=== PATIENT | male | born 1940 | race Caucasian/White ===

== ENCOUNTER 2016-06-04 20:50 | Inpatient (IN) | payer MEDICARE, BC ==
[~2016-06-04] VITALS: Ht 175.3 cm; Wt 92.5 kg
[~2016-06-04 20:50] MED LIST: ALDACTONE25 MG PO; ALDACTONE50 MG PO; ARED PO; ASPIRIN 81 MG E81 MG PO; BAYER CHEWABLE81 MG PO; CORDARONE200 MG PO; COREG25 MG PO; DIOVAN HCT 160/1 TAB PO; GLIMEPIRIDE1 MG PO; GLIMEPIRIDE4 MG PO; HUMALOG 30100 UNITS/ SC; JANUVIA100 MG PO; JANUVIA25 MG PO; KLOR-CON 88 MEQ PO; KRILL OIL 1,001 EAC1 PO; LANTUS INSULIN10 ML SC; LASIX20 MG PO; LASIX40 MG PO; LIQUITEARS15 ML EACH EYE; LOVAZA1 G PO; OMNICEF300 MG PO; ONGLYZA5 MG PO; PACERONE200 MG PO; PLAVIX75 MG PO; PROVENTIL HFA6.7 GM INH; TENORMIN50 MG PO; TOUJEO SOL300 UNIT/1 SC; VENTOLIN HFA18 GM INH; ZOCOR20 MG PO
--- NOTE | 2016-06-04 20:50 | NUR ---
PT ARRIVED ON REHAB UNIT, ADMITTED TO ROOM 1119B, ASSISTED BY HOSPITAL STAFF. PT IS FOR FIVE YEARS, SON LIVES IN [place]. PT HAS SUPPORT INDIVIDUAL TO ASSIST WITH CARES. PT HAS SERVICE DOG, DOG IS STAYING ON TRAINERS. PT WOULD APPRECIATE IF DOG WAS ABLE TO VISIT. THE DOG HELPS PATIENT WITH HIS DIABETES AND DETECTS WHEN PT IS EITHER TO HIGH OR TO LOW. PT STATES HE DOES CHECK HIS FSBS BEFORE EACH MEAL AT HOME. PT EXPRESSES CONCERN AND IS MOTIVATED TO RETURN HOME, PT DIDN'T ANTICIPATE HAVING A STROKE. PT STATES HE IS INDEPENDENT AND WANTS TO DO THINGS FOR HIMSELF.
[2016-06-04 21:45] VITALS: BP 118/59; BMI 30.2
--- NOTE | 2016-06-05 03:03 | NUR ---
PT AWAKE IN BED LYING ON HIS SIDE, DENIES ANY NEEDS.
--- NOTE | 2016-06-05 03:52 | NUR ---
LATE ENTRY FROM ASSESSMENT, PT NOT ABLE TO TOUCH HIS LEFT HAND WITH HIS RIGHT, PT STATES HE DOESN'T KNOW WHERE HIS LEFT HAND IS, IT ISN'T WHERE HE THINKS IT SHOULD BE.
[2016-06-05 06:57] LABS: BASOPHILS 0.2 % (0.0-2.0); EOSINOPHILS 2.8 % (0-7); HEMATOCRIT 36.1 % (42.0-54.0); HEMOGLOBIN 12.1 g/dL (13.5-17.5); IMMATURE GRANULOCYTES 0.6 % (0-5); LYMPHOCYTES 14.3 % (15-50); MCH 30.6 pg (26.0-34.0); MCHC 33.5 g/dL (31.0-37.0); MCV 91.2 fL (80.0-100.0); MONOCYTES 11.6 % (2-11); NEUTROPHILS 70.5 % (40-80); PLATELET COUNT 176 10x3/uL (130-400); RBC 3.96 10x6/uL (4.20-6.10); RDW 13.2 % (11.5-14.5); WBC 11.2 10x3/uL (4.8-10.8)
[2016-06-05 07:22] LABS: ANION GAP 13.1 mmol/L (8-16); CALCIUM 8.1 mg/dL (8.5-10.1); CARBON DIOXIDE 27.9 mmol/L (21.0-32.0); CREATININE - SERUM 1.7 mg/dL (0.6-1.3)
--- NOTE | 2016-06-05 08:20 | NUR ---
SITTING ON SIDE OF BED EATING BREAKFAST. LUE WEAK AND PT C/O IT ACHES WHEN IT IS HANGING DOWN.
[2016-06-05 08:35] VITALS: BP 126/81
--- NOTE | 2016-06-05 12:12 | NUR ---
SITTING IN W/C IN ROOM EATING LUNCH. HAS SEVERAL BLACK SCABS TO FACE AND EXTREMITIES. DENIES PAIN.
--- NOTE | 2016-06-05 15:38 | NUR ---
IN W/C IN THERAPY GYM.
--- NOTE | 2016-06-05 16:34 | RHP ---
PATIENT: PRITESH KWAN MEDICAL RECORD: [id number] ACCOUNT: [id number] LOCATION:[facility]1119 : 39 ADMISSION DATE: 06/04/16 REHABILITATION HISTORY AND PHYSICAL EXAMINATION POST ADMISSION PHYSICIAN EXAMINATION Post-admission Physical Exam and History and Physical DATE OF ADMISSION: 06/04/2016 ADMITTING DIAGNOSES: Right middle cerebral artery distribution infarct, leukocytosis, and hypertension. HISTORY OF PRESENT ILLNESS: The patient is a gentleman who is admitted to the inpatient rehab with a diagnosis of CVA with noted left-sided weakness. He is a 76-year-old gentleman with a past medical history of hypertension, diabetes, coronary artery disease, CHF, atrial fibrillation, who is currently on aspirin and Plavix, no prior neurological history except problems with peripheral neuropathy from his diabetes. He awoke on June 02 and fell out of bed, unable to get off of the floor for nearly 12 hours until a friend found him. He lives alone except for a dog development intern. He was found to have an elevated CPK of 7200. CT was normal except for chronic ischemic changes was seen and evaluated, found to have a stroke in that distribution of his right middle cerebral artery and will definitely need inpatient rehab to get back to his prior level of functioning. COMORBIDITIES: Include CHF, COPD, acute mental status changes, atrial fibrillation, heart murmur, neuropathy, asthma, chronic cough, shortness of breath, acute kidney injury, history of nicotine dependence, ischemic cardiomyopathy, and hyperlipidemia. PAST MEDICAL HISTORY: Significant for diabetes, hypertension, coronary artery disease, CHF, and atrial fibrillation. PAST SURGICAL HISTORY: Includes appendectomy, tonsillectomy and adenoidectomy, and hernia repair. He also had a penile implant done back in 2012. ALLERGIES: PENICILLIN, SHELLFISH, AND IODINE. CURRENT MEDICATIONS: Include hydrochlorothiazide 12.5 mg daily, Diovan 160 mg daily, Amaryl 4 mg b.i.d. with meals, furosemide 40 mg daily in the a.m. and then 40 mg again at noon. He is on carvedilol 25 mg b.i.d. with meals, Plavix 75 mg daily, amiodarone 200 mg daily, Benadryl p.r.n., polyethylene glycol 17 grams in 8 ounces of water daily, spironolactone 50 mg at bedtime, Zocor 20 mg q.h.s., Onglyza 5 mg at bedtime. He is on an intermediate resistant sliding scale with Humalog. He is on Lantus 60 units at bedtime, fish oil daily, Omnicef 300 mg b.i.d., chewable aspirin 81 mg daily, beta-carotene and multivitamin daily and Ventolin as needed for shortness of breath. HABITS: No current alcohol or tobacco use. FAMILY HISTORY: Noncontributory. SOCIAL HISTORY: The [place] and get back to his prior level of functioning. HISTORY AND PHYSICAL [id number] PRITESH KWAN REVIEW OF SYSTEMS: GENERAL: Does complain of some weakness. HEENT: Denies cold, cough, or congestion. CARDIOVASCULAR: Denies chest pain. PHYSICAL EXAMINATION: VITAL SIGNS: Stable, afebrile. GENERAL: An elderly gentleman in no acute distress, alert upon exam. HEENT: Normocephalic and atraumatic. Mucosa moist. NECK: Supple. No lymphadenopathy. LUNGS: Clear at this time. HEART: Irregular rate and rhythm. ABDOMEN: Benign. EXTREMITIES: No clubbing, cyanosis or edema. NEUROLOGIC: Intact. LABORATORY DATA: His white count is 11.2, H&H of 12 and 36, and platelet count was noted to be 176. Sodium 139, potassium 4.0, BUN and creatinine of 42 and 1.7 and blood sugar was noted to be 117. ASSESSMENT: This is a 76-year-old gentleman admitted to the rehab with a working diagnosis of cerebrovascular accident involving the right middle cerebral artery distribution with weakness on the left side. The patient has potential to make improvement. We instituted the following multidisciplinary therapies including to, but not limited to physical, occupational, respiratory, speech, nutritional services, prosthetics and orthotics. Given his complex condition and risk for more complications, rehabilitation services cannot be provided at a low level of care such as a long-term facility. PLAN: 1. Admit to [facility] rehab for intensive inpatient therapy to include the following disciplines: A. Physical therapy to improve gait, all transfer skills and bed mobility to a modified independent level. B. Occupational therapy to improve activities of daily living to a modified independent level. C. Case management to assist with discharge planning and placement options. D. Nutrition to assist with nutritional needs. E. Rehabilitation nursing to assist in monitoring the patient's underlying medical conditions and to assist with any type of bowel or bladder management. 2. The patient's current medication and medical care will be continued. 3. The patient will be placed on standard fall precautions. 4. The patient's estimated length of stay is approximately 7-10 days. 5. Discuss this patient during care team staff meeting this week. TRANSINT:[id number] Voice Confirmation ID: [id number] DOCUMENT ID: [id number] HISTORY AND PHYSICAL [id number] PRITESH KWAN SCOTT MD at 1634 CC: [id number] DICTATION DATE: 06/05/16 1302 LEARNING MANAGER: 06/05/16 1359 ADM IN [place] [id number] [place] [address]
--- NOTE | 2016-06-05 17:25 | NUR ---
CARE TEAM MEETING: PATIENT NEW TO UNIT AND WILL BE RA AT NEXT MEETING. WILL CONTINUE TO FOLLOW WITH PATIENT
--- NOTE | 2016-06-05 18:45 | NUR ---
RESTING QUIETLY IN BED. LAYING ON BACK. CALL LIGHT IN REACH
[2016-06-05 19:00] VITALS: BP 90/51
--- NOTE | 2016-06-05 20:00 | NUR ---
PT. IN BED WITH HOB FOR COMFORT AND HAVING PROBLEMS WITH BED TILTING TO THE RIGHT FOR THE PAST 2 DAYS. WILL SEE ABOUT FIXING PROBLEM AND IF UNFIXABLE WILL CHANGE OUT BEDS FOR HIS COMFORT AND SAFETY. CALL LIGHT WITHIN REACH.
--- NOTE | 2016-06-06 03:10 | NUR ---
PT. SNORING SO LOUD THAT HIS ROOMMATE HAS COMPLAINED ABOUT IT WAKING HIM UP. PT. WAS AWAKENED AND INFORMED OF PROBLEM AND PT. WAS REPOSITIONED ONTO HIS BACK AND HOB UP HIGHER FOR COMFORT. CALL LIGHT WITHIN REACH AND PT. HAS NO VOICED NEEDS AT THIS TIME.
--- NOTE | 2016-06-06 06:00 | NUR ---
OFFERED KATHLEEN CRACKERS AND MILK FOR BS OF 91 TO HOLD PT. OVER UNTIL BREAKFAST AT 0800.
--- NOTE | 2016-06-06 08:00 | NUR ---
SITTING ON SIDE OF BED EATING BREAKFAST. HAS SOME GROSS MOTOR MOVEMENT TO LUE BUT NO FINE MOTOR SKILLS. HE HAS BEEN USING RUE TO WORK WITH LUE. DENIES PAIN OR SOB.
--- NOTE | 2016-06-06 10:37 | NUR ---
WOUND CARE CONSULT: PT HAS NUMEROUS SCABS ON ELBOWS, KNEES, RIGHT HAND AND FACE. PT STATES HE FELL AND BUMPED, SCRATCHED OR SCRAPED THE AREAS WHICH LEAD TO THE SCABS. CURRENTLY COVERED WITH MEPILEX DRESSINGS. RECOMMEND REMOVING DRESSINGS WHEN SHOWERING, DRYING WELL AND RECOVERING WITH BANDAIDS OR LEAVING OPEN TO AIR, WHICH EVER IS MOST COMFORTABLE FOR PT.
--- NOTE | 2016-06-06 12:17 | NUR ---
EATING LUNCH. WALKS WITH MIN ASST TO BATHROOM.
--- NOTE | 2016-06-06 14:14 | NUR ---
WALKING IN PAYAN. DENIES NEEDS OR C/O.
[2016-06-06 15:08] VITALS: Ht 175.3 cm; Wt 92.5 kg
--- NOTE | 2016-06-06 17:01 | NUR ---
SITTING IN ROOM VISITING WITH FRIENDS. DENIES NEEDS OR C/O
[2016-06-06 17:18] VITALS: BP 105/65
--- NOTE | 2016-06-06 19:25 | NUR ---
PT. IN BED WITH HOB UP FOR COMFORT AND WATCHING BALLGAME ON TV. ASSESSMENT COMPLETED. PT. DENIES ANY NEW PROBLEMS AND HAS NO NEEDS AT THIS TIME. ASKED PT. WHAT HE WANTS ME TO DO IF HE STARTS SNORING TONIGHT AND WAKES UP HIS ROOMMATE. PT. SAID TO DEFINATELY WAKE HIM UP SO HE CAN REPOSITION HIMSELF. PT. AGAIN APOLOGIZED TO ROOMMATE FOR LAST NIGHT'S EVENTS. PT. REQUESTING KATHLEEN CRACKERS AND MILK FOR HIS BEDTIME SNACK. CALL LIGHT WITHIN REACH.
[2016-06-06 22:45] VITALS: BP 94/54
[2016-06-06 23:00] VITALS: BP 94/54
--- NOTE | 2016-06-07 03:59 | NUR ---
PT. IN BED WITH HOB UP FOR COMFORT WITH EYES CLOSED AND RESP. EVEN. CALL LIGHT WITHIN REACH.
[2016-06-07 07:00] LABS: BASOPHILS 0.3 % (0.0-2.0); EOSINOPHILS 3.7 % (0-7); HEMATOCRIT 37.2 % (42.0-54.0); HEMOGLOBIN 12.2 g/dL (13.5-17.5); IMMATURE GRANULOCYTES 1.5 % (0-5); LYMPHOCYTES 16.4 % (15-50); MCHC 32.8 g/dL (31.0-37.0); MCV 91.4 fL (80.0-100.0); MEAN PLATELET VOLUME 10.4 fL (7.4-10.4); MONOCYTES 10.4 % (2-11); NEUTROPHILS 67.7 % (40-80); PLATELET COUNT 229 10x3/uL (130-400); RBC 4.07 10x6/uL (4.20-6.10); RDW 13.1 % (11.5-14.5); WBC 11.1 10x3/uL (4.8-10.8)
[2016-06-07 07:22] LABS: ANION GAP 14.8 mmol/L (8-16); CALCIUM 8.6 mg/dL (8.5-10.1); CARBON DIOXIDE 26.6 mmol/L (21.0-32.0); CREATININE - SERUM 2.4 mg/dL (0.6-1.3); POTASSIUM - SERUM 4.4 mmol/L (3.5-5.1)
--- NOTE | 2016-06-07 08:31 | NUR ---
SITTING UP ON SIDE OF BED. DENIES PAIN. LUE VERY WEAK BUT HAS SOME GROSS MOTOR MOVEMENT.
[2016-06-07 12:17] VITALS: BP 101/59
--- NOTE | 2016-06-07 19:30 | NUR ---
PT. IN BED WATCHING TV. ASSESSMENT COMPLETED. PT. HAS NO VOICED NEEDS AT THIS TIME BUT WILL USE HIS CALL LIGHT IF HE NEEDS ANYTHING.
[2016-06-07 20:15] VITALS: BP 95/60
[2016-06-08 07:00] VITALS: BP 117/63
--- NOTE | 2016-06-08 08:00 | NUR ---
PATIENT IS ALERT/ORIENT X4. SITTING UP IN BED TO EAT BREAKFAST. CALL LIGHT WITHIN REACH. VOICES NO NEEDS
--- NOTE | 2016-06-08 10:30 | NUR ---
IN THERAPY.LULA WELL.
--- NOTE | 2016-06-08 10:39 | NUR ---
PATIENT IN REHAB ROOM. WORKING WITH PHYSICAL THERAPIST. DENIES ANY PAIN/DISC AT THIS TIME
--- NOTE | 2016-06-08 11:45 | NUR ---
GLUCOSE LEVEL 208. EIGHT UNITS OF SLIDING SCALE INSULIN GIVEN
--- NOTE | 2016-06-08 13:54 | NUR ---
THIS NURSE TALKED TO THERAPY IN REGARDS TO STEADINESS. PATIENT HAS BEEN GETTING OUT OF BED ON HIS OWN. PHYSICAL THERAPIST FELT PATIENTS GAIT WAS UNSTEADY. THIS NURSE EXPLAINED TO PATIENT THAT HE IS NOT STEADY ENOUGH TO WALK AROUND HIS ROOM ON HIS OWN. BED/CHAIR ALARM REMAINS ON.
--- NOTE | 2016-06-08 17:37 | NUR ---
GLUCOSE LEVEL 187. FOUR UNITS OF SLIDING SCALE INSULIN GIVEN
[2016-06-08 19:35] VITALS: BP 108/58
--- NOTE | 2016-06-08 20:40 | NUR ---
PT TOOK HS MEDS WITHOUT DIFFICULTY AT THIS TIME. PT DENEIS FURTHUR NEEDS. WCTM. BED LOW. CL IN REACH.
--- NOTE | 2016-06-09 00:10 | NUR ---
PT ASSISTED TO BR. PT BACK IN BED AND DENIES FURTHUR NEEDS. WCTM. BED LOW. CLIN REAHC.
--- NOTE | 2016-06-09 06:29 | NUR ---
PT FSBS OF 124 REQUIRED NO INSULIN. PT ASSISTED TO BR. PT BACK IN BED ADN DENIES FURTHUR NEEDS. WCTM. BED LOW. CL IN REACH.
[2016-06-09 07:00] VITALS: BP 119/69
--- NOTE | 2016-06-09 08:04 | NUR ---
PATIENT AWAKE, ALERT/ORIENT X4. CALL LIGHT WITHIN REACH. VOICES NO NEEDS
--- NOTE | 2016-06-09 10:27 | NUR ---
PATIENT HAS AN UNSTEADY GIAT. POSIEY ALARM ON IN BED. PATIENT REMINDED TO USE CALL LIGHT FOR ANY NEEDS
--- NOTE | 2016-06-09 11:45 | NUR ---
GLUCOSE LEVEL 200. FOUR UNITS OF SLIDING SCALE INSULIN GIVEN
--- NOTE | 2016-06-09 16:57 | NUR ---
GLUCOSE LEVEL 198. TWO UNITS OF SLIDING SCALE INSULIN GIVEN
--- NOTE | 2016-06-09 17:45 | NUR ---
LYING IN BED.DENIES NEEDS.
[2016-06-09 19:35] VITALS: BP 97/58
--- NOTE | 2016-06-09 19:53 | NUR ---
PT LYING IN BED WATCHING TV. VS TAKEN. PT DENIES NEEDS. WCTM. BED LOW. CLIN REACH.
--- NOTE | 2016-06-09 20:39 | NUR ---
PT HS MEDS TAKEN WITHOUT DIFFICULTY. PT GIVEN 4UNITS INSULINE FOR 183 FSBS. PT DENIES NEEDS. WCTM. BED LOW. CL IN REACH.
--- NOTE | 2016-06-10 00:17 | NUR ---
PT RESTING IN BED, EYES OPEN, DENIES NEEDS. WCTM. BED LOW. CL IN REACH.
--- NOTE | 2016-06-10 03:30 | NUR ---
PT RESTING, EYES CLOSED. RR ARE EVEN AND UNLABORED. NO SIGNS OF DISTRESS NOTED. WCTM. BED LOW. CL IN REACH.
--- NOTE | 2016-06-10 05:44 | NUR ---
PT FSBS 122, NO INSULIN REQUIRED. PT DENIES NEEDS AT THIS TIME. BED LOW. CL IN REACH.
[2016-06-10 07:32] LABS: BASOPHILS 0.4 % (0.0-2.0); EOSINOPHILS 3.5 % (0-7); HEMATOCRIT 36.3 % (42.0-54.0); IMMATURE GRANULOCYTES 1.6 % (0-5); LYMPHOCYTES 17.9 % (15-50); MCH 30.2 pg (26.0-34.0); MCHC 33.1 g/dL (31.0-37.0); MCV 91.4 fL (80.0-100.0); MEAN PLATELET VOLUME 9.8 fL (7.4-10.4); MONOCYTES 16.9 % (2-11); NEUTROPHILS 59.7 % (40-80); PLATELET COUNT 236 10x3/uL (130-400); RBC 3.97 10x6/uL (4.20-6.10); RDW 13.1 % (11.5-14.5); WBC 10.1 10x3/uL (4.8-10.8)
--- NOTE | 2016-06-10 08:07 | NUR ---
introduced self tp pt, breakfast served, no needs noted at this time, will continue to monitor, call light within reach.
[2016-06-10 08:08] LABS: ANION GAP 16.8 mmol/L (8-16); CALCIUM 9.3 mg/dL (8.5-10.1); CARBON DIOXIDE 25.1 mmol/L (21.0-32.0); CREATININE - SERUM 2.8 mg/dL (0.6-1.3); POTASSIUM - SERUM 4.9 mmol/L (3.5-5.1)
[2016-06-10 08:47] VITALS: BP 91/55
--- NOTE | 2016-06-10 09:59 | NUR ---
MEDICATION GIVEN, PT TOLERATED WELL, NO NEW NEEDS NOTED AT THIS TIME, WILL CONTINUE TO MONITOR, CALL LIGHT WITHIN REACH.
--- NOTE | 2016-06-10 11:11 | NUR ---
PT WITH PHYSICAL THERAPY, WILL CONTINUE TO MONITOR.
--- NOTE | 2016-06-10 13:17 | NUR ---
PT RESTING IN BED, RESPIRATIONS EVEN, SIDE RAILS UP X'S 2, BED IN LOW POSITION, WILL CONTINUE TO MONITOR, CALL LIGHT WITHIN REACH.
--- NOTE | 2016-06-10 14:30 | NUR ---
PT RESTING QUIETLY, RESPIRATIONS EVEN, BED IN LOW POSITION, SIDE RAILS UP X'S 2, CALL LIGHT WITHIN REACH..
--- NOTE | 2016-06-10 15:54 | NUR ---
PT IN PHYSICAL THERAPY, WILL CONTINUE TO MONITOR.
--- NOTE | 2016-06-10 17:35 | NUR ---
PT SITTING IN BED EATING DINNER, PT STATES NO NEEDS AT THIS TIME, WILL CONTINUE TO MONITOR, CALL LIGHT WITHIN REACH.
[2016-06-10 21:19] VITALS: BP 93/58
--- NOTE | 2016-06-10 21:35 | NUR ---
RESTING IN BED VISITING WITH GUEST. SERVICE DOG PRESENT, PROBABLY THE FRIENDLIEST DOG EVER. NO ACUTE DISTRESS NOTED. DENIES NEEDS.
--- NOTE | 2016-06-11 02:40 | NUR ---
PT RESTING, EYES CLOSED. BED LOW. CL IN REACH.
--- NOTE | 2016-06-11 05:39 | NUR ---
RESTING IN BED EYES CLOSED. AROUSES TO VOICE. ALERT ORIENTED CONVERSANT. DENIES NEEDS. NO ACUTE DISTRESS NOTED.
--- NOTE | 2016-06-11 08:01 | NUR ---
SITTING ON SIDE OF BED EATING BREAKFAST. DENIES PAIN OR SOB.
[2016-06-11 08:38] VITALS: BP 93/56
--- NOTE | 2016-06-11 11:44 | NUR ---
RELAXING ON BED. LUE WEAKNESS NOTED.
--- NOTE | 2016-06-11 19:32 | NUR ---
INTRODUCED SELF TO PT, PT STATES NO NEEDS AT THIS TIME, WILL CONTINUE TO MONITOR, CALL LIGHT WITHIN REACH.
[2016-06-11 21:19] VITALS: BP 89/55
--- NOTE | 2016-06-11 21:36 | NUR ---
NIGHT MEDICATION GIVEN, PT TOLERATED WELL, PT STATES NO NEW NEEDS AT THIS TIME, WILL CONTINUE TO MONITOR, CALL LIGHT WITHIN REACH.
--- NOTE | 2016-06-11 23:20 | NUR ---
PT RESTING QUIETLY, RESPIRATIONS EVEN, BED IN LOW POSITION, SIDE RAILS UP X'S 2, CALL LIGHT WITHIN REACH, WILL CONTINUE TO MONITOR.
--- NOTE | 2016-06-12 00:40 | NUR ---
PT RESTING QUIETLY ON LEFT SIDE, RESPIRATIONS EVEN, CALL LIGHT WITHIN REACH, WILL CONTINUE TO MONITOR.
--- NOTE | 2016-06-12 02:00 | NUR ---
RESTING IN BED ON RIGHT SIDE. APPEARS COMFORTABLE.
--- NOTE | 2016-06-12 04:30 | NUR ---
REMAINS IN BED, EYES CLOSED. APPEARS COMFORTABLE.
[2016-06-12 05:50] LABS: BASOPHILS 0.3 % (0.0-2.0); EOSINOPHILS 3.6 % (0-7); HEMATOCRIT 36.3 % (42.0-54.0); HEMOGLOBIN 11.8 g/dL (13.5-17.5); IMMATURE GRANULOCYTES 1.1 % (0-5); LYMPHOCYTES 21.8 % (15-50); MCH 29.6 pg (26.0-34.0); MCHC 32.5 g/dL (31.0-37.0); MCV 91.2 fL (80.0-100.0); MEAN PLATELET VOLUME 9.4 fL (7.4-10.4); MONOCYTES 13.8 % (2-11); NEUTROPHILS 59.4 % (40-80); PLATELET COUNT 269 10x3/uL (130-400); RBC 3.98 10x6/uL (4.20-6.10)
[2016-06-12 06:22] LABS: ANION GAP 13.3 mmol/L (8-16); CALCIUM 8.8 mg/dL (8.5-10.1); CARBON DIOXIDE 25.9 mmol/L (21.0-32.0); CREATININE - SERUM 3.4 mg/dL (0.6-1.3); POTASSIUM - SERUM 5.2 mmol/L (3.5-5.1)
--- NOTE | 2016-06-12 07:53 | NUR ---
RESTING IN BED WITH SIDERAILS UP X2.
[2016-06-12 08:00] VITALS: BP 107/44
--- NOTE | 2016-06-12 08:07 | NUR ---
PATIENT IS AWAKE, ALERT/ORIENT X4. CALL LIGHT WITHIN REACH. VOICES NO NEEDS AT THIS TIME
--- NOTE | 2016-06-12 08:17 | NUR ---
COREG HELD, B/P 107/44.
--- NOTE | 2016-06-12 10:02 | NUR ---
DR. Henry RIVERA INTO SEE PATIENT. NEW ORDERS RECEIVED.
--- NOTE | 2016-06-12 12:32 | NUR ---
GLUCOSE LEVEL 277. TEN UNITS OF SLIDING SCALE INSULIN GIVEN. DR BARCLAY OFFICE CALLED FOR CONSULT. THIS NURSE TALKED TO AMILCAR SHAH.
--- NOTE | 2016-06-12 15:04 | NUR ---
PATIENT IN REHAB ROOM. WORKING WITH PHYSICAL THERAPIST. DENIES ANY PAIN/DISC AT THIS TIME
[2016-06-12 19:45] VITALS: BP 107/58
--- NOTE | 2016-06-12 20:45 | NUR ---
PT. IN BED WITH HOB UP FOR COMFORT WATCHING TV. INSTRUCTED PT. ON DR. MORAN'S NEW ORDERED FOR URINE TESTING AND FOR PT. TO HAVE AN I.V. TO RECIEVE FLUIDS. ASSESSMENT COMPLETED. PT. HAS NO VOICED NEEDS AT THIS TIME AND CALL LIGHT IS WITHIN REACH.
--- NOTE | 2016-06-12 23:30 | NUR ---
PT. IN BED WITH HOB UP FOR COMFORT AND AWAKENS EASILY WHEN I ENTER THE ROOM. INFORMED PT. AGAIN OF MD'S ORDERS FOR IV FLUIDS AND ANSWERED HIS QUESTIONS. PT. WILL ASK MD TOMORROW HOW LONG HE HAS TO HAVE THE I.V. PER ASEPTIC TECHNIQUE PERIPHERAL I.V. STARTED IN LEFT HAND TIMES 1 ATTEMPT WITH 22GA ANGIOCATH WITHOUT ANY PROBLEMS. I.V. 0.9%NS STARTED AT 75CC/HR VIA PUMP WITHOUT ALARMS. SECURED I.V. SITE AND INSTRUCTED PT. TO CALL FOR ASSISTANCE WHEN GETTING UP. CALL LIGHT WITHIN REACH. PRIOR TO INITIATING I.V. FLUIDS PT. VOIDED INTO STERILE CUP FOR LAB ORDERS FROM DR. NAVARRETE. PT. DENIES ANY NEEDS AT THIS TIME.
[2016-06-13 00:51] LABS: APPEARANCE CLEAR (CLEAR); BILIRUBIN NEGATIVE (NEGATIVE); COLOR YELLOW (YELLOW); GLUCOSE NEGATIVE (NEGATIVE); KETONE NEGATIVE (NEGATIVE); LEUKOCYTE ESTERASE NEGATIVE (NEGATIVE); NITRITE NEGATIVE (NEGATIVE); PROTEIN NEGATIVE (NEGATIVE); SPECIFIC GRAVITY 1.015 (1.005-1.020); UROBILINOGEN NORMAL (NORMAL)
[2016-06-13 01:00] LABS: CREATININE - URINE 44.8 mg/dL (30-125); POTASSIUM - URINE 40.2 MMOL/L (12.0-62.0); PRO/CRE RATIO URINE 0.2 mg/g; PROTEIN - URINE 6.8 mg/dL (0.0-11.9)
--- NOTE | 2016-06-13 03:50 | NUR ---
PT. IN BED WITH HOB UP FOR COMFORT AND LYING ON HIS RIGHT SIDE. EYES CLOSED AND RESP. EVEN. WITH CALL LIGHT WITHIN REACH. IV CONTINUES TO INFUSE VIA LEFT HAND PERIPHERAL I.V. 0.9%NS AT 75CC/HR VIA PUMP WITHOUT ANY ALARMS.
[2016-06-13 07:45] LABS: BASOPHILS 0.3 % (0.0-2.0); EOSINOPHILS 3.7 % (0-7); HEMATOCRIT 35.6 % (42.0-54.0); HEMOGLOBIN 11.8 g/dL (13.5-17.5); IMMATURE GRANULOCYTES 0.9 % (0-5); LYMPHOCYTES 22.5 % (15-50); MCH 30.3 pg (26.0-34.0); MCHC 33.1 g/dL (31.0-37.0); MCV 91.3 fL (80.0-100.0); MEAN PLATELET VOLUME 9.7 fL (7.4-10.4); MONOCYTES 11.7 % (2-11); NEUTROPHILS 60.9 % (40-80); PLATELET COUNT 250 10x3/uL (130-400); RDW 13.1 % (11.5-14.5); WBC 10.3 10x3/uL (4.8-10.8)
[2016-06-13 08:00] VITALS: BP 115/58
--- NOTE | 2016-06-13 08:00 | NUR ---
RESTING QUIETLY IN BED.DENIES PAIN OR NEEDS.NO SIGNS OF ACUTE DISTRESS.CL IN EASY REACH,BED IN LOW POSITION.
[2016-06-13 08:06] LABS: ANION GAP 15.2 mmol/L (8-16); CALCIUM 8.6 mg/dL (8.5-10.1); CARBON DIOXIDE 25.8 mmol/L (21.0-32.0); CREATININE - SERUM 3.4 mg/dL (0.6-1.3)
--- NOTE | 2016-06-13 10:41 | NUR ---
Nutrition Follow Up: Chart reviewed. Diet: Diabetic PO Intake: 68% (9 meal avg) No new wt +BM 06/10/16 Labs noted - Glucose WNL Meds: Lantus, Humalog, MV Pt with good po intake at this time. Rec continue current diet. RD following.
--- NOTE | 2016-06-13 19:32 | NUR ---
PT RESTING IN BED, DENIES NEEDS. WCTM. BED LOW. CL IN REACH.
[2016-06-13 21:10] VITALS: BP 110/64
--- NOTE | 2016-06-13 21:47 | NUR ---
PT TOOK HS MEDS WITHOUT DIFFICULTY. PT DENIES NEEDS AT THIS TIME. BED LOW. CL IN REACH. WCTM.
--- NOTE | 2016-06-14 01:26 | NUR ---
PT RESTING, EYES CLOSED. BED LOW. CL IN REACH. WCTM.
--- NOTE | 2016-06-14 03:20 | NUR ---
PT RESTING, EYES CLOSED. BED LOW. CL IN REACH. WCTM.
--- NOTE | 2016-06-14 06:41 | NUR ---
PT RESTING IN BED, DENIES NEEDS AT THIS TIME. BED LOW. CL IN REACH.
--- NOTE | 2016-06-14 08:04 | NUR ---
PATIENT AWAKE, ALERT/ORIENT X4. CALL LIGHT WITHIN REACH. VOICE NO NEEDS
[2016-06-14 09:54] VITALS: BP 109/55
--- NOTE | 2016-06-14 10:41 | NUR ---
DR. RIVERA INTO SEE PATIENT. NEW ORDERS RECEIVED. PATIENT IS ALERT/ORIENT X4
--- NOTE | 2016-06-14 12:00 | NUR ---
GLUCOSE LEVEL 229. EIGHT UNITS OF SLIDING SCALE INSULIN GIVEN PER ORDER
--- NOTE | 2016-06-14 13:55 | NUR ---
SALINE LOCK REMOVED FROM LEFT HAND. NORMAL SALINE D/C'D
--- NOTE | 2016-06-14 16:07 | NUR ---
PATIENT USING CALL LIGHT TO GO TO THE BATHROOM. STAND BY ASST FROM BED TO BATHROOM. RIGHT SIDE WEAKNESS NOTED.
[2016-06-14 19:45] VITALS: BP 116/67
--- NOTE | 2016-06-14 19:45 | NUR ---
PT RESTING, IN BED WATCHING TV, DENIES NEEDS AT THIS TIEM. BED LOW. CL IN REACH. WCTM.
--- NOTE | 2016-06-14 20:30 | NUR ---
PT TOOK HS MEDS WITHOUT DIFFICULTY. PT REQUIRED 4 UNITS HUMALOG FOR 178 FSBS. PT REQ ADN REC'D HS SNACK OF PEANUT BUTTER AND CRACKERS. FAMILY AND SERVICE DOG IN ROOM VISITING. WCTM. BED LOW. CL IN REACH.
--- NOTE | 2016-06-14 22:00 | NUR ---
PT RESTING, EYES CLOSED. BED LOW. CL IN REACH. WCTM.
--- NOTE | 2016-06-15 01:06 | NUR ---
PT RESTING, EYES CLOSED. BED LOW. CL IN REACH.
--- NOTE | 2016-06-15 03:54 | NUR ---
PT RESTING, EYES CLOSED. RR ARE EVEN AND UNLABORED. NO S&S OF DISTRESS NOTED. WCTM. BED LOW. CL IN REACH.
--- NOTE | 2016-06-15 08:00 | NUR ---
SITTING ON SIDE OF BED EATING BREAKFAST. DENIES NEEDS OR SOB. IS WORKING WITH GETACHEW BY USING RUE. MORE ROM NOTED TO GETACHEW.
[2016-06-15 08:36] LABS: ANION GAP 12.5 mmol/L (8-16); CALCIUM 9.3 mg/dL (8.5-10.1); CARBON DIOXIDE 26.9 mmol/L (21.0-32.0); POTASSIUM - SERUM 4.4 mmol/L (3.5-5.1)
[2016-06-15 08:43] LABS: CREATININE - SERUM 2.2 mg/dL (0.6-1.3)
--- NOTE | 2016-06-15 11:44 | NUR ---
DENIES NEEDS OR C/O. USING RUE TO WORK ROM WITH LUE. USES WALKER.
--- NOTE | 2016-06-15 15:00 | NUR ---
RESTING QUIETLY IN BED WATCHING TV. DENIES NEEDS
--- NOTE | 2016-06-15 18:00 | NUR ---
RESTING QUIETLY IN BED WITH EYES CLOSED.
[2016-06-15 18:01] VITALS: BP 114/66
--- NOTE | 2016-06-15 21:00 | NUR ---
PT. IN BED WITH HIS SERVICE DOG, AND ITA WITH HIS VISITOR. PT. REQUESTING KATHLEEN BOYD FOR HIS BEDTIME SNACK TONIGHT. ASSESSMENT COMPLETED. NO OTHER VOICED NEEDS/CONCERNS AND CALL LIGHT IS WITHIN REACH.
[2016-06-15 22:21] VITALS: BP 99/56
--- NOTE | 2016-06-16 02:07 | NUR ---
PT. IN BED WITH HOB UP FOR COMFORT WITH EYES CLOSED AND RESP. DEEP AND EVEN. CALL LIGHT IS WITHIN REACH.
--- NOTE | 2016-06-16 06:04 | NUR ---
PT. IN BED WITH HOB UP FOR COMFORT AND HIS EYES ARE CLOSED AND RESP. EVEN WHILE I'M PLACING A FRESH CUP OF ICE WATER ON HIS BEDSIDE TABLE. CALL LIGHT REMAINS WITHIN HIS REACH.
--- NOTE | 2016-06-16 06:17 | NUR ---
BLOOD SUGAR 76 THIS MORNING. GAVE PT. HIS REQUESTED KATHLEEN CRACKERS AND OJ. PT. STATED, "I SHOULD HAVE EATEN BOTH PACKAGES OF KATHLEEN CRACKERS LAST NIGHT WITH MY MILK INSTEAD OF JUST THE ONE."
--- NOTE | 2016-06-16 08:11 | NUR ---
SITTING ON SIDE OF BED EATING BREAKFAST
--- NOTE | 2016-06-16 12:01 | NUR ---
SITTING ON SIDE OF BED EATING LUNCH. FRIEND VISITING WITH PT. HE DENIES NEEDS OR C/O
[2016-06-16 12:43] VITALS: BP 98/56
--- NOTE | 2016-06-16 17:53 | NUR ---
LAYING IN BED WAITING ON FRIEND TO BRING CHILI FOR SUPPER. HAS SUPPER TRAY AT BEDSIDE BUT IS NOT EATING IT. DENIES NEEDS.
[2016-06-16 20:00] VITALS: BP 115/57
--- NOTE | 2016-06-16 20:00 | NUR ---
PT. IN BED WITH HOB UP FOR COMFORT AND IS WATCHING TV. ASSESSMENT COMPLETED. PT. DENIES ANY NEEDS AT THIS TIME AND HAS THE CALL LIGHT WITHIN REACH.
--- NOTE | 2016-06-17 01:58 | NUR ---
PT. IN BED WITH HOB UP FOR COMFORT AND LYING ON HIS SIDE. EYES CLOSED AND RESP. EVEN. CALL LIGHT WITHIN REACH.
--- NOTE | 2016-06-17 06:15 | NUR ---
BLOOD SUGAR THIS MORNING 73. PT. REQUESTED APPLE JUICE AND KATHLEEN CRACKERS. COMPLIED WITH HIS REQUEST. CALL LIGHT WITHIN REACH IF HE HAS ANY NEEDS.
--- NOTE | 2016-06-17 08:25 | NUR ---
PATIENT SITTING UP ON THE SIDE OF HIS BED TO EAT BREAKFAST. CALL LIGHT WITHIN REACH. VOICES NO NEEDS AT THIS TIME.
[2016-06-17 09:43] VITALS: BP 117/67
--- NOTE | 2016-06-17 10:01 | NUR ---
PATIENT IN REHAB ROOM, WORKING WITH PHYSICAL THERAPIST. DENIES ANY PAIN/DISC AT THIS TIME
[2016-06-17 10:48] LABS: BASOPHILS 0.4 % (0.0-2.0); EOSINOPHILS 4.8 % (0-7); HEMATOCRIT 35.7 % (42.0-54.0); HEMOGLOBIN 11.7 g/dL (13.5-17.5); IMMATURE GRANULOCYTES 0.8 % (0-5); LYMPHOCYTES 12.1 % (15-50); MCH 30.4 pg (26.0-34.0); MCHC 32.8 g/dL (31.0-37.0); MCV 92.7 fL (80.0-100.0); MEAN PLATELET VOLUME 9.6 fL (7.4-10.4); MONOCYTES 13.4 % (2-11); NEUTROPHILS 68.5 % (40-80); PLATELET COUNT 220 10x3/uL (130-400); RBC 3.85 10x6/uL (4.20-6.10); WBC 10.6 10x3/uL (4.8-10.8)
[2016-06-17 10:58] LABS: ANION GAP 13.8 mmol/L (8-16); CALCIUM 9.2 mg/dL (8.5-10.1); CARBON DIOXIDE 26.4 mmol/L (21.0-32.0); CREATININE - SERUM 1.9 mg/dL (0.6-1.3); POTASSIUM - SERUM 5.2 mmol/L (3.5-5.1)
--- NOTE | 2016-06-17 11:45 | NUR ---
GLUCOSE MYDEE939. EIGHT UNITS OF SLIDING SCALE INSULIN GIVEN
--- NOTE | 2016-06-17 16:27 | NUR ---
Pt. is currently resting in bed. Awake and oriented x 3. Denies any pain or discomfort at this time. Will be monitoring him and assisting prn with adl's as needed. Call light is in reach.
--- NOTE | 2016-06-17 17:00 | NUR ---
GLUCOSE LEVEL 84. NO SLIDING SCALE GIVEN
[2016-06-17 19:35] VITALS: BP 120/71
--- NOTE | 2016-06-17 19:45 | NUR ---
PT RESTING IN BED WATCHING TV, DENIES NEEDS AT THIS TIME. BED LOW. CL IN REACH.
--- NOTE | 2016-06-17 21:35 | NUR ---
PT GIVEN HS MEDS WITHOUT DIFFICULTY. PT FAMILY AND SERVICE DOG AT BEDSIDE AT THIS TIME. PT DENIES NEEDS. WCTM. BED LOW. CL IN REACH.
--- NOTE | 2016-06-17 23:59 | NUR ---
PT RESTING, EYES CLOSED. BED LOW. CL IN REACH. WCTM.
--- NOTE | 2016-06-18 02:59 | NUR ---
PT RESTING, EYES CLOSED. BED LOW. CLIN REAHC. WCTM.
--- NOTE | 2016-06-18 05:30 | NUR ---
PT RESTING, EYES CLSOED. BED LOW. CL IN [facility]. WCMT.
--- NOTE | 2016-06-18 07:29 | NUR ---
PATIENT AWAKE, ALERT/ORIENT X4. STEADY GAIT, HAS SIGNED CHAIR/BED ALARM WAAARONOR
[2016-06-18 09:23] VITALS: BP 104/83
--- NOTE | 2016-06-18 10:35 | NUR ---
DR. RIVERA INTO SEE PATIENT, NEW ORDERS RECEIVED.
--- NOTE | 2016-06-18 14:49 | NUR ---
PATIENT IN REHAB ROOM. WORKING WITH PHYSICAL THERAPIST. DENIES ANY PAIN/DISC AT THIS TIME
--- NOTE | 2016-06-18 15:47 | NUR ---
patient discharging home with [facility], no DME needed at this time. appointments: Dr. Hernandez 07/03/16 @ 10:40, Dr. Luna office will call patient with a 1-2 month appointment, Dr. Up 08/05/16 8:20. patient choice form for home health and [facility] form explained signed and filed in chart. will continue to follow with patient until discharged.
--- NOTE | 2016-06-18 16:59 | NUR ---
GLUCOSE LEVEL 129. NO SLIDING SCALE INSULIN GIVEN
--- NOTE | 2016-06-18 19:25 | NUR ---
PT RESTING IN BED WATCHING TV. PT DENIES NEEDS AT THIS TIME. BED LOW. CL IN REACH. WCTM
[2016-06-18 21:00] VITALS: BP 112/49
--- NOTE | 2016-06-18 21:10 | NUR ---
PT TOOK HS MEDS WITHOUT DIFFICULYT. PT DENIES NEEDS AT THIS TIME. BED LOW. CL IN REACH.
--- NOTE | 2016-06-18 23:41 | NUR ---
PT RESTING IN BED, EYES OPEN. DENIES NEEDS AT THIS TIME. BED LOW. CLIN REACH. WCTM.
--- NOTE | 2016-06-19 01:43 | NUR ---
PT RESTING, EYES CLOSED. BED LOW. CL IN REACH. WCTM.
--- NOTE | 2016-06-19 03:52 | NUR ---
PT RESTING, EYES CLOSED. BED LOW. CL IN REACH. WCTM.
[2016-06-19 05:53] LABS: BASOPHILS 0.3 % (0.0-2.0); EOSINOPHILS 5.1 % (0-7); HEMATOCRIT 32.9 % (42.0-54.0); HEMOGLOBIN 10.6 g/dL (13.5-17.5); IMMATURE GRANULOCYTES 0.8 % (0-5); LYMPHOCYTES 21.1 % (15-50); MCH 29.7 pg (26.0-34.0); MCHC 32.2 g/dL (31.0-37.0); MCV 92.2 fL (80.0-100.0); MEAN PLATELET VOLUME 9.8 fL (7.4-10.4); NEUTROPHILS 58.7 % (40-80); PLATELET COUNT 207 10x3/uL (130-400); RBC 3.57 10x6/uL (4.20-6.10); RDW 13.1 % (11.5-14.5); WBC 8.6 10x3/uL (4.8-10.8)
[2016-06-19 06:03] LABS: ANION GAP 11.9 mmol/L (8-16); CALCIUM 8.3 mg/dL (8.5-10.1); CREATININE - SERUM 1.6 mg/dL (0.6-1.3)
[2016-06-19 06:12] LABS: POTASSIUM - SERUM 3.9 mmol/L (3.5-5.1)
--- NOTE | 2016-06-19 06:18 | NUR ---
PT AWAKENED FOR AM FSBS. PT REQUIRED NO INSULIN AND DENIES NEEDS AT THIS TIME. BED LOW. CL IN REACH.
--- NOTE | 2016-06-19 07:47 | NUR ---
SITTING ON SIDE OF THE BED READING PAPER.
[2016-06-19 07:54] VITALS: BP 122/67
--- NOTE | 2016-06-19 08:15 | NUR ---
PT UP ON SIDE OF BED EATING BREAKFAST TOLERATING WELL CALL LIGHT IN REACH WILL MONITER
--- NOTE | 2016-06-19 10:56 | NUR ---
Nutrition Follow Up: Chart reviewed. Noted pt is discharging. Diet: Diabetic PO Intake: 94% (9 meal avg) +BM 06/17/16 Meds: Humalog, Lantus, MV Labs noted Pt with good po intake. Rec continue current diet. RD following until d/c.
--- NOTE | 2016-06-19 12:00 | NUR ---
PT DISCHARGED TO HOME VIA WHEELCHAIR WITH FAMILY MEMBER PT DISCHARGE MEDS AND DISCHARGE MED REQ REVIEWED WITH PT NO QUESTIONS OR CONCERNS
== END 2016-06-19 14:05 | disposition home health service (06) | DRG 65 ==
LOC: D.REHAB 20:50
PROVIDERS: Internal Medicine; Internal Medicine Nephrology; ADMIT Emergency Medicine
DX: I63.511 Cerebral infarction due to unspecified occlusion or stenosis of right middle cerebral artery (principal); N17.9 Acute kidney failure, unspecified; D72.829 Elevated white blood cell count, unspecified; I11.0 Hypertensive heart disease with heart failure; I50.9 Heart failure, unspecified; J44.9 Chronic obstructive pulmonary disease, unspecified; R41.82 Altered mental status, unspecified; I48.91 Unspecified atrial fibrillation; G62.9 Polyneuropathy, unspecified; J45.909 Unspecified asthma, uncomplicated; R05 Cough; R06.02 Shortness of breath; Z87.891 Personal history of nicotine dependence; I25.5 Ischemic cardiomyopathy; E78.5 Hyperlipidemia, unspecified

== ENCOUNTER 2018-05-26 00:24 | Inpatient (IN) | payer MEDICARE, BC ==
[~2018-05-26] VITALS: Ht 175.3 cm; Wt 93.4 kg
[2018-05-26] VITALS (23 sets, daily range): BP systolic 103–155; BP diastolic 41–83
--- NOTE | ~2018-05-26 | MORECARE ---
CASE MANAGEMENT DISCHARGE SUMMARY PATIENT: JACOB MITCHELL UNIT: [id number] ADM DATE: 05/26/18 AGE: 78 : 39 SEX: M ROOM/BED: D.1203 AUTHOR: FEROZ,DOC PHYSICIAN: REFERRING PHYSICIAN: DARION ANN MD DATE OF SERVICE: 05/28/18 Discharge Plan Patient Name: JACOB MITCHELL Facility: [facility]:[place] : 1940 Planned Disposition: Home Anticipated Discharge Date: 05/29/18 Discharge Date: 05/28/2018 Expected LOS: 3 Initial Reviewer: [email or web address] Initial Review Date: 05/26/2018 Generated: 05/28/18 4:58 pm DCP- Discharge Planning Updated by [email or web address]: Jessica Jose on 05/26/18 9:[address] Patient Name: JACOB MITCHELL Admission Status: ER Accout number: [id number] Admission Date: 05-26-2018 : 1940 Admission Diagnosis: Attending: DARION ANN Current LOS: 1 Anticipated DC Date: 05-29-2018 Planned Disposition: Home Primary Insurance: MEDICARE A & B Discharge Planning Comments: CM met with patient to complete initial dc planning assessment. CM educated patient on the CM role and verbal consent given by patient to complete assessment. Patient lives at home alone and reports he is independent in his care. He denied having community resources but he does have a life line. He also has a dexcom that checks his blood sugar every 5 min and he can pull the results up on her cell phone. At discharge patient plans to return home alone and feels this is a safe discharge. Patient denied known discharge needs at this time. CM will continue to follow and will assist as needed with dc plans/needs. See below for more assessment information. Warehouse Unloader: Jessica Jose RN, [facility] DCPIA - Discharge Planning Initial Assessment Updated by [email or web address]: Jessica Jose on 05/26/18 10:29 am * Is the patient Alert and Oriented? Yes * How many steps to enter\exit or inside your home? None * PCP Dr. Hernandez * Pharmacy [facility] * Preadmission Environment Home Alone * ADLs Independent * Equipment Cane * List name and contact numbers for known caregivers / representatives who currently or will assist patient after discharge: Domenico Palmer - son - [phone] Jacob Mitchell - son- [phone] * Verbal permission to speak to the caregivers and representatives has been obtained from the patient. Yes * Community resources currently utilized Other * Please name any agencies selected above. [facility] * Additional services required to return to the preadmission environment? No * Can the patient safely return to the preadmission environment? Yes * Has this patient been hospitalized within the prior 30 days at any hospital? No Last DP export: 05/26/18 9:39 Patient Name: JACOB MITCHELL Page [id number] at 1559 All edits/amendments must be made on the electronic document DICTATION DATE: 05/28/181557 ROTATING EQUIPMENT ENGINEER: AGATHA 05/28/181557 RPT#: [id number] DC DATE:05/28/18 STATUS: DIS IN [facility] [address] [place] [address] END OF REPORT
--- NOTE | ~2018-05-26 | EC ---
PATIENT:PRITESH KWAN DATE OF SERVICE: 05/26/18 SEX: M MEDICAL RECORD: [id number] DATE OF : [birth year] LOCATION:D. D.120 AGE OF PATIENT: 78 ADMISSION DATE: 05/26/18 REFERRING PHYSICIAN: INTERPRETING PHYSICIAN: MÓNICA PEDERSON MD ECHOCARDIOGRAM REPORT ECHO CHARGES 4 ECHO COMPLETE Date: 05/26/18 CLINICAL DIAGNOSIS: CHF ECHOCARDIOGRAPHIC MEASUREMENTS (adult normal given) AC root (d.<3.7cm) 4.4 cm LV Septum d (<1.2 cm> 1.4 cm Valve Excursion 1.9 cm LV Septum (systole) 2.0 cm Left Atria (s.<4.0cm> 5.0 cm LVPW d(<1.2cm) 1.5 cm RV (d.<2.3cm) 3.5 cm LVPW (sytole) 1.9 cm LV diastole(<5.6CM) 5.6 cm MV E-F(>70mm/sec) cm LV systole 4.5 cm LVOT Diameter 1.8 cm MV exc.(>10mm) 1.6 cm Est.ejection fraction (50-75%) % DOPPLER: LVIT cm/sec A 96.0 cm/sec E 108 cm/sec LA cm/sec RVSP 47 mmHg LVOT 104 cm/sec AOP1/2T m/s Asc. Ao 155 cm/sec RVOT 88 cm/sec RA cm/sec PA 99 cm/sec AV Gradient Peak 5.33 mmHg AV Mean 2.97 mmHg AV Area 1.6 cm MV Gradient Peak 6.54 mmHg MV Mean 2.85 mmHg MV Area cm COMMENTS: Cable Installation Technician: Gab HOLLY Food Storeroom Clerk: 1 Dr. Pederson TAPE# PACS Pericardial Effusion N DATE OF SERVICE: 05/26/2018 FINDINGS: 1. Left ventricular chamber is within normal limits. Left ventricular systolic function is normal. Overall ejection fraction estimated at 55%. 2. Left atrium, right atrium, and right ventricle chamber sizes are mildly dilated. Left atrium measures 5.0 cm. 3. Valvular structures have normal structure and motion. 4. Doppler interrogation reveals mild aortic insufficiency, [id number] mitral regurgitation, mild to moderate tricuspid regurgitation, no other ECHOCARDIOGRAM REPORT [id number] PRITESH KWAN valvular insufficiency or stenosis. Pulmonary systolic pressure is mildly elevated estimated 47 mmHg. 5. No evidence of pericardial effusion or left ventricular thrombus. TRANSINT:[id number] Voice Confirmation ID: [id number] DOCUMENT ID: [id number] MÓNICA PEDERSON MD CC: [id number] DICTATION DATE: 05/27/18834 TRAVEL COORDINATOR: 05/27/18 1132 ADM IN [facility] [address] [place] [address]
--- NOTE | ~2018-05-26 | MORECARE ---
CASE MANAGEMENT DISCHARGE SUMMARY PATIENT: JACOB MITCHELL UNIT: [id number] ADM DATE: 05/26/18 AGE: 78 : 39 SEX: M ROOM/BED: D.E12 AUTHOR: FEROZDOC PHYSICIAN: REFERRING PHYSICIAN: DARION ANN MD DATE OF SERVICE: 05/26/18 Discharge Plan Patient Name: JACOB MITCHELL Facility: [facility]:[place] : 1940 Planned Disposition: Home Anticipated Discharge Date: 05/29/18 Discharge Date: Expected LOS: 3 Initial Reviewer: [email or web address] Initial Review Date: 05/26/2018 Generated: 05/26/18 11:39 am DCP- Discharge Planning Updated by [email or web address]: Jessica Jose on 05/26/18 9:[address] Patient Name: JACOB MITCHELL Admission Status: ER Accout number: [id number] Admission Date: 05-26-2018 : 1940 Admission Diagnosis: Attending: DARION ANN Current LOS: 1 Anticipated DC Date: 05-29-2018 Planned Disposition: Home Primary Insurance: MEDICARE A & B Discharge Planning Comments: CM met with patient to complete initial dc planning assessment. CM educated patient on the CM role and verbal consent given by patient to complete assessment. Patient lives at home alone and reports he is independent in his care. He denied having community resources but he does have a life line. He also has a dexcom that checks his blood sugar every 5 min and he can pull the results up on her cell phone. At discharge patient plans to return home alone and feels this is a safe discharge. Patient denied known discharge needs at this time. CM will continue to follow and will assist as needed with dc plans/needs. See below for more assessment information. Communications Department Chairperson: Jessica Jose RN, [facility] DCPIA - Discharge Planning Initial Assessment Updated by [email or web address]: Jessica Jose on 05/26/18 10:29 am * Is the patient Alert and Oriented? Yes * How many steps to enter\exit or inside your home? None * PCP Dr. Hernandez * Pharmacy [facility] * Preadmission Environment Home Alone * ADLs Independent * Equipment Cane * List name and contact numbers for known caregivers / representatives who currently or will assist patient after discharge: Domenico Locastro - son - [phone] Jacob Mitchell - son- [phone] * Verbal permission to speak to the caregivers and representatives has been obtained from the patient. Yes * Community resources currently utilized Other * Please name any agencies selected above. [facility] * Additional services required to return to the preadmission environment? No * Can the patient safely return to the preadmission environment? Yes * Has this patient been hospitalized within the prior 30 days at any hospital? No Last DP export: 05/26/18 9:31 Patient Name: JACOB MITCHELL Page [phone] at 1039 All edits/amendments must be made on the electronic document DICTATION DATE: 05/26/18 1039 LINEWORKER: AGATHA 05/26/18 1039 RPT#: [id number] DC DATE: STATUS: ADM IN [facility] [address] [place] [address] END OF REPORT
--- NOTE | ~2018-05-26 | MORECARE ---
CASE MANAGEMENT DISCHARGE SUMMARY PATIENT: JACOB MITCHELL UNIT: [id number] ADM DATE: 05/26/18 AGE: 78 : 39 SEX: M ROOM/BED: D.E12 AUTHOR: LAKEISHA REDMAN PHYSICIAN: REFERRING PHYSICIAN: DARION ANN MD DATE OF SERVICE: 05/26/18 Discharge Plan Patient Name: JACOB MITCHELL [facility] : 1940 Planned Disposition: Home Anticipated Discharge Date: 05/29/18 Discharge Date: Expected LOS: 3 Initial Reviewer: [email or web address] Initial Review Date: 05/26/2018 Generated: 05/26/18 11:31 am DCPIA - Discharge Planning Initial Assessment Updated by [email or web address]: Jessica Jose on 05/26/18 10:29 am * Is the patient Alert and Oriented? Yes * How many steps to enter\exit or inside your home? None * PCP Dr. Hernandez * Pharmacy [facility] * Preadmission Environment Home Alone * ADLs Independent * Equipment Cane * List name and contact numbers for known caregivers / representatives who currently or will assist patient after discharge: Domenico Estela - son - [phone] Jacob Mitchell - son- [phone] * Verbal permission to speak to the caregivers and representatives has been obtained from the patient. Yes * Community resources currently utilized Other * Please name any agencies selected above. [facility] * Additional services required to return to the preadmission environment? No * Can the patient safely return to the preadmission environment? Yes * Has this patient been hospitalized within the prior 30 days at any hospital? No Patient Name: JACOB MITCHELL Page 47553 at 1031 All edits/amendments must be made on the electronic document DICTATION DATE: 05/26/18 1030 WELLNESS TRAINER: AGATHA 05/26/18 1030 RPT#: [id number] DC DATE: STATUS: ADM IN [facility] [address] [place] [address] END OF REPORT
[2018-05-26 00:56] LABS: BASOPHILS 0.1 % (0-2); HEMATOCRIT 39.6 % (42.0-54.0); HEMOGLOBIN 13.1 g/dL (13.5-17.5); IMMATURE GRANULOCYTES 0.3 % (0-5); LYMPHOCYTES 8.6 % (15-50); MCH 30.2 pg (26.0-34.0); MCHC 33.1 g/dL (31.0-37.0); MCV 91.2 fL (80.0-100.0); MEAN PLATELET VOLUME 9.7 fL (7.4-10.4); MONOCYTES 10.7 % (2-11); NEUTROPHILS 79.3 % (40-80); PLATELET COUNT 192 10x3/uL (130-400); RBC 4.34 10x6/uL (4.20-6.10); RDW 13.5 % (11.5-14.5); WBC 13.7 10x3/uL (4.8-10.8)
[2018-05-26 01:12] LABS: APPEARANCE CLEAR (CLEAR); BILIRUBIN NEGATIVE (NEGATIVE); COLOR YELLOW (YELLOW); GLUCOSE NEGATIVE (NEGATIVE); KETONE NEGATIVE (NEGATIVE); NITRITE NEGATIVE (NEGATIVE); PROTEIN NEGATIVE (NEGATIVE); UROBILINOGEN NORMAL (NORMAL)
[2018-05-26 01:31] LABS: ALBUMIN 3.2 g/dL (3.4-5.0); ALKALINE PHOSPHATASE 69 U/L (46-116); ALT (SGPT) 18 U/L (10-68); BILIRUBIN - TOTAL 0.41 mg/dL (0.2-1.3); CALC OSMOLALITY 286 mosm/kg (275-300); CALCIUM 8.2 mg/dL (8.5-10.1); CARBON DIOXIDE 24.1 mmol/L (21.0-32.0); CHLORIDE - SERUM 102 mmol/L (98-107); CREATININE - SERUM 1.4 mg/dL (0.6-1.3); POTASSIUM - SERUM 4.7 mmol/L (3.5-5.1); PROTEIN - SERUM 6.9 g/dL (6.4-8.2); SODIUM 137 mmol/L (136-145); UREA NITROGEN 31 mg/dL (7-18); eGFR NON AFRICAN AMERICAN 52 mL/min (90-120)
[2018-05-26 01:32] LABS: GLUCOSE 203 mg/dL (74-106)
[2018-05-26 01:45] LABS: CKMB 0.2 U/L (0.0-3.6); CREATINE KINASE 79 UL (21-232); MAGNESIUM - SERUM 1.9 mg/dL (1.8-2.4); PRO BNP 3061 pg/mL (0-450)
[2018-05-27] VITALS (7 sets, daily range): BP systolic 107–123; BP diastolic 47–69; BMI 30.5
[2018-05-27 05:26] LABS: BASOPHILS 0.1 % (0-2); EOSINOPHILS 1.1 % (0-7); HEMATOCRIT 35.6 % (42.0-54.0); HEMOGLOBIN 11.7 g/dL (13.5-17.5); IMMATURE GRANULOCYTES 0.2 % (0-5); LYMPHOCYTES 10.7 % (15-50); MCH 29.8 pg (26.0-34.0); MCHC 32.9 g/dL (31.0-37.0); MCV 90.6 fL (80.0-100.0); MEAN PLATELET VOLUME 10.1 fL (7.4-10.4); MONOCYTES 12.6 % (2-11); NEUTROPHILS 75.3 % (40-80); PLATELET COUNT 205 10x3/uL (130-400); RBC 3.93 10x6/uL (4.20-6.10); RDW 13.3 % (11.5-14.5)
[2018-05-27 05:56] LABS: ALBUMIN 2.9 g/dL (3.4-5.0); ANION GAP 16.3 mmol/L (8-16); BILIRUBIN - TOTAL 0.68 mg/dL (0.2-1.3); CALCIUM 8.1 mg/dL (8.5-10.1); CARBON DIOXIDE 22.3 mmol/L (21.0-32.0); CREATININE - SERUM 1.3 mg/dL (0.6-1.3); PROTEIN - SERUM 6.6 g/dL (6.4-8.2)
[2018-05-27 06:06] LABS: POTASSIUM - SERUM 3.6 mmol/L (3.5-5.1)
[2018-05-28] VITALS: BP 145/85
[2018-05-28 04:00] VITALS: BP 116/71
[2018-05-28 06:14] LABS: BASOPHILS 0.2 % (0-2); EOSINOPHILS 1.6 % (0-7); HEMATOCRIT 35.8 % (42.0-54.0); HEMOGLOBIN 11.8 g/dL (13.5-17.5); IMMATURE GRANULOCYTES 0.3 % (0-5); LYMPHOCYTES 13.6 % (15-50); MCH 29.6 pg (26.0-34.0); MCV 89.9 fL (80.0-100.0); MEAN PLATELET VOLUME 10.1 fL (7.4-10.4); MONOCYTES 12.7 % (2-11); NEUTROPHILS 71.6 % (40-80); PLATELET COUNT 208 10x3/uL (130-400); RBC 3.98 10x6/uL (4.20-6.10); RDW 13.5 % (11.5-14.5); WBC 11.7 10x3/uL (4.8-10.8)
[2018-05-28 06:28] LABS: ANION GAP 15.3 mmol/L (8-16); CALCIUM 8.1 mg/dL (8.5-10.1); CARBON DIOXIDE 23.4 mmol/L (21.0-32.0); CREATININE - SERUM 1.5 mg/dL (0.6-1.3); POTASSIUM - SERUM 3.7 mmol/L (3.5-5.1)
[2018-05-28 09:17] VITALS: BP 100/48
[2018-05-28 09:41] VITALS: Ht 175.3 cm; Wt 93.4 kg
[2018-05-28 11:00] VITALS: BP 129/73
[2018-05-28 11:02] VITALS: BP 129/73; BP 144/80
[2018-05-28 11:03] VITALS: BP 135/63
[2018-05-28] MEDS ORDERED: LEVAQUIN750 MG PO (13:32)
== END 2018-05-28 15:28 | disposition home or self-care (01) | DRG 190 ==
LOC: D.ER 00:24 → D.M3 03:01 → D.EDHOLD 03:01 → D.M3 15:50
PROVIDERS: Family Medicine; Internal Medicine Nephrology
DX: J44.1 Chronic obstructive pulmonary disease with (acute) exacerbation (principal); J18.9 Pneumonia, unspecified organism; F17.213 Nicotine dependence, cigarettes, with withdrawal; N17.9 Acute kidney failure, unspecified; J44.0 Chronic obstructive pulmonary disease with (acute) lower respiratory infection; I10 Essential (primary) hypertension; I48.0 Paroxysmal atrial fibrillation; I25.10 Atherosclerotic heart disease of native coronary artery without angina pectoris; E11.40 Type 2 diabetes mellitus with diabetic neuropathy, unspecified; D64.9 Anemia, unspecified; E78.5 Hyperlipidemia, unspecified; Z86.73 Personal history of transient ischemic attack (TIA), and cerebral infarction without residual deficits

== ENCOUNTER → 2018-12-24 13:07 | Outpatient (CLI) | payer OTHER, MEDICARE, BC ==
[2018-05-28 09:41] VITALS: BMI 30.4
[~2018-12-24 13:07] MED LIST changes: +LEVAQUIN750 MG PO
== END | disposition home or self-care (01) ==
LOC: D.CT 13:07
PROVIDERS: ATTEND Surgery
DX: R06.02 Shortness of breath (principal)

== ENCOUNTER 2019-03-02 13:27 | Observation (INO) | payer MEDICARE, BC ==
[~2019-03-02] VITALS: Ht 175.3 cm; Wt 93.4 kg
[2019-03-02] VITALS (9 sets, daily range): BP systolic 107–144; BP diastolic 59–80; BMI 30.5
[2019-03-02] MEDS ORDERED: HUMALOG 30100 UNITS/ SC (13:41)
[2019-03-02] MEDS ORDERED: COZAAR25 MG PO (13:43)
[2019-03-02] MEDS ORDERED: KAZANO 12.5-1,1 EACH PO (13:44)
[2019-03-02] MEDS ORDERED: KAZANO 12.5-501 EACH PO (13:45)
[2019-03-02] MEDS ORDERED: LASIX20 MG PO (13:45)
[2019-03-02 14:32] LABS: BASOPHILS 0.2 % (0-2); HEMOGLOBIN 12.3 g/dL (13.5-17.5); IMMATURE GRANULOCYTES 0.3 % (0-5); LYMPHOCYTES 14.2 % (15-50); MCH 28.7 pg (26.0-34.0); MCHC 32.4 g/dL (31.0-37.0); MCV 88.6 fL (80.0-100.0); MEAN PLATELET VOLUME 9.7 fL (7.4-10.4); MONOCYTES 8.8 % (2-11); NEUTROPHILS 75.5 % (40-80); PLATELET COUNT 203 10x3/uL (130-400); RBC 4.29 10x6/uL (4.20-6.10); RDW 15.1 % (11.5-14.5); WBC 10.9 10x3/uL (4.8-10.8)
[2019-03-02 14:50] LABS: ALBUMIN 3.5 g/dL (3.4-5.0); ALKALINE PHOSPHATASE 81 U/L (46-116); ALT (SGPT) 16 U/L (10-68); BILIRUBIN - TOTAL 0.56 mg/dL (0.2-1.3); CALC OSMOLALITY 291 mosm/kg (275-300); CALCIUM 8.3 mg/dL (8.5-10.1); CARBON DIOXIDE 27.6 mmol/L (21.0-32.0); CHLORIDE - SERUM 107 mmol/L (98-107); CREATININE - SERUM 1.5 mg/dL (0.6-1.3); GLUCOSE 150 mg/dL (74-106); POTASSIUM - SERUM 4.1 mmol/L (3.5-5.1); PROTEIN - SERUM 7.1 g/dL (6.4-8.2); SODIUM 143 mmol/L (136-145); UREA NITROGEN 25 mg/dL (7-18); eGFR NON AFRICAN AMERICAN 48 mL/min (90-120)
[2019-03-02 15:06] LABS: CKMB 0.8 U/L (0.0-3.6); CREATINE KINASE 256 UL (21-232); PRO BNP 15124 pg/mL (0-450)
[2019-03-02 15:10] LABS: TROPONIN-I < 0.017 ng/mL (0.000-0.060)
--- NOTE | 2019-03-02 16:17 | NUR ---
VOIDED 200ML VIA URINAL
--- NOTE | 2019-03-02 16:52 | NUR ---
ATTEMPTED TO CALL REPORT, RN UNAVAILABLE
--- NOTE | 2019-03-02 17:04 | NUR ---
VOIDED 600ML CL YELLOW URINE VIA URINAL
--- NOTE | 2019-03-02 17:35 | NUR ---
REPORT CALLED TO ALYSSA PEDRAZA BY SBAR FORMAT
--- NOTE | 2019-03-02 17:55 | NUR ---
TRANSPORTED TO ROOM #2119, CONDITION STABLE
--- NOTE | 2019-03-02 18:02 | NUR ---
IV AND TELEMETRY DCD. DC PLANS GIVEN. UNDERSTANDING VOICED. ESCORTED TO CAR BY W/C.
--- NOTE | 2019-03-02 18:05 | NUR ---
TRANSFER FROM ER BY STRETCHER. OREINTED TO ROOM. CALL LIGHT IN REACH. WILL CONT. PLAN OF CARE.
[2019-03-03] VITALS (13 sets, daily range): BP systolic 93–180; BP diastolic 54–148; Ht 175.3 cm; Wt 93.4 kg
--- NOTE | 2019-03-03 08:00 | NUR ---
DR LORENZO NOTIFIED OF PTS INCREASED WEAKNESS AND C/O TROUBLE BREATHING. STATES TO CONT DOBUTREX GTT, NO FUTHER ORDERS.
--- NOTE | 2019-03-03 12:58 | NUR ---
CRISTÓBAL ANSARI WITH DR LORENZO NOTIFIED OF INCREASED WEAKNESS AND CONFUSION. NEW ORDERS GIVEN.
--- NOTE | 2019-03-03 13:25 | NUR ---
TRANSFERED TO 2305 ICU.
--- NOTE | 2019-03-03 13:26 | NUR ---
RECEIVED PATIENT AT THIS TIME. ON 4L O2 VIA NC. DOBUTAMINE INFUSING AT 5MCG/KG/MIN THROUGH RIGHT HAND PIV. BP AND HR STABLE. O2 SAT 98%. PT SHORT OF BREATH. ALERT AND ORIENTED. NORMAL SINUS RHYTHM. POSSIBLE 1ST DEGREE BLOCK. WILL CHECK ORDERS AND CONTINUE TO MONITOR
[2019-03-03 13:34] LABS: % SATURATION 4 % (15-55); IRON 14 ug/dl (35-150); TOTAL IRON BIND CAPACITY 342 ug/dl (260-445); UNSAT IRON BIND CAPACITY 328 ug/dl (150-375)
--- NOTE | 2019-03-03 13:55 | NUR ---
PT HR JUMPED TO 190'S. DR. ANN NOTIFIED. EKG OBTAINED--SVT. 2GM MAGNESIUM BOLUS ADMINISTERED IV PER DR. ANN ORDERS.
--- NOTE | 2019-03-03 14:15 | NUR ---
ORDERS FOR 5MG LOPRESSOR IV PUSH OBTAINED AND GIVEN FOLLOWED BY 5MG CARDIZEM, FOLLOWED 6MG ADENOSINE IV PUSH THEN 12MG IV PUSH. ADENOSINE WORKED TEMPORAILY. AT 1405 CODE BLUE CALLED. CHEST COMPRESSIONS STARTED. APPLIED DEFIBRILATOR AND SHOCKED AT 1410 CONVERTING TO NORMAL SINUS RHYTHM. ER DOCTOR INTUBATED AT 1420. PT IN NORMAL SINUS RHYTHM C STABLE BP INTUBATED AND BAGGED. STAT CHEST XRAY ORDERD.
[2019-03-03 14:31] LABS: ALBUMIN 3.7 g/dL (3.4-5.0); ALKALINE PHOSPHATASE 84 U/L (46-116); ALT (SGPT) 18 U/L (10-68); BILIRUBIN - TOTAL 0.89 mg/dL (0.2-1.3); CALC OSMOLALITY 288 mosm/kg (275-300); CALCIUM 8.4 mg/dL (8.5-10.1); CARBON DIOXIDE 26.8 mmol/L (21.0-32.0); CHLORIDE - SERUM 100 mmol/L (98-107); CREATININE - SERUM 1.7 mg/dL (0.6-1.3); GLUCOSE 147 mg/dL (74-106); POTASSIUM - SERUM 3.6 mmol/L (3.5-5.1); PROTEIN - SERUM 7.2 g/dL (6.4-8.2); SODIUM 141 mmol/L (136-145); UREA NITROGEN 27 mg/dL (7-18); eGFR NON AFRICAN AMERICAN 41 mL/min (90-120)
--- NOTE | 2019-03-03 14:38 | NUR ---
NOTIFIED PATIENTS CARLEE NICHOLE OF CODE BLUE AND EVENTS THAT TRANSPIRED.
[2019-03-03 14:52] LABS: CREATINE KINASE 913 UL (21-232)
[2019-03-03 14:53] LABS: TROPONIN-I 0.938 ng/mL (0.000-0.060)
[2019-03-03 14:54] LABS: CKMB 1.6 U/L (0.0-3.6)
--- NOTE | 2019-03-03 15:05 | NUR ---
CHAN CATHETER PLACED AT THIS TIME
--- NOTE | 2019-03-03 15:20 | NUR ---
PT WENT INTO VTACH. 1 SHOCK GIVEN--CONVERTED BACK TO NSR. NOTIFIED DIONISIO AND DR. LORENZO AND DR. ANN. ORDERS TO DC DOBUTAMINE AND START AMIODARONE DRIP. DR. LORENZO SPOKE TO SON ON PHONE ABOUT CHANGING STATUS TO DNR. SON DIONISIO IS GOING TO CALL BACK WITH CONSENT TO MAKE PT DNR IF REST OF FAMILY IN AGREEMENT.
--- NOTE | 2019-03-03 16:50 | NUR ---
PT WENT INTO VTACH AGAIN. 1 SHOCK GIVEN ALONG WITH EPINEPHRINE AND ATROPINE. CONVERTED TO AGUSTÍN JUNCTIONAL PULSES ELECTRICAL ACTIVITY. DR. ANN IN ROOM DURING TIME OF EVENTS. DR. ANN CALLED IT AT 1655 AND PRONOUNCED . WILL NOTIFY FAMILY
--- NOTE | 2019-03-03 18:35 | NUR ---
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 ALL BELONGINGS SENT WITH PATIENT TO HOME.
--- NOTE | 2019-03-04 09:14 | HP ---
PATIENT: PRITESH MITCHELL MEDICAL RECORD: [id number] ACCOUNT: [id number] LOCATION:[facility] D.2305 : [birth year] ADMISSION DATE: 03/02/19 PCP: JOSE CATALAN MD HISTORY AND PHYSICAL EXAMINATION DIAGNOSES: 1. Shortness of breath, dyspnea on exertion. 2. Congestive heart failure, chronic systolic dysfunction. 3. Cardiomyopathy, ischemic. 4. Coronary artery disease. 5. Previous percutaneous transluminal coronary angioplasty stent. 6. Paroxysmal atrial fibrillation. 7. Hypertension. 8. Hyperlipidemia. 9. Insulin-dependent diabetes. HISTORY OF PRESENT ILLNESS: Mr. Mitchell presents with 2 weeks of increased shortness of breath. He had quite severe chest pain 2 weeks ago. After this, he has been markedly more short of breath. He has a known cardiomyopathy, last ejection fraction was in the 20% range. This is the echo done at the [facility] a number of months ago. Chest x-ray at Dr. Catalan's office was compatible with pulmonary edema, congestive heart failure, sent from there to the Emergency Room. His EKG is with previous inferior myocardial infarction, no acute ST-T abnormalities. PHYSICAL EXAMINATION: CONSTITUTIONAL/GENERAL APPEARANCE: Well nourished, well developed, appears stated age. EYES: Lids and conjunctivae noninjected. No discharge. No pallor. ENT: Lips within normal limit. No cyanosis. No pallor. NECK: Carotid arteries, bilateral normal upstroke. No bruits. No thrills. No jugular venous pressure or distention. CERVICAL LYMPH NODES: Nontender. Nonenlarged. THYROID: Not enlarged. No nodules. CARDIOVASCULAR: Precordial exam, nondisplaced. No heaves or pericardial thrills. Rate and rhythm, regular. Heart sounds, normal S1, normal S2. No S3, no gallop, no rub. Systolic murmur, not heard. Diastolic murmur, not heard. RESPIRATORY: Respiratory effort, unlabored. Normal curvature. No thoracic deformity. No chest wall tenderness. Percussion, resonant. Auscultation, clear. No wheezes, no rales, no rhonchi. ABDOMEN: Soft, nondistended, nontender. No abdominal pain, no vomiting and normal appetite. MUSCULOSKELETAL: No joint tenderness, normal gait, normal tone. SKIN: Warm and dry. OVERALL IMPRESSION: Unstable angina after this severe shortness of breath most likely he had a myocardial infarction with the severe chest pain 2 weeks ago and this is what worsened his ejection fraction. We will reevaluate ejection fraction with an echocardiogram. Start him on dobutamine. Start him on IV Lasix. He has serial troponins. Further care depends upon the results of these studies and with the medical therapy. TRANSINT:[id number] Voice Confirmation ID: [id number] DOCUMENT ID: [id number] HISTORY AND PHYSICAL [id number] PRITESH MITCHELL JEFFREY MD at 0914 CC: [id number] DICTATION DATE: 03/02/19 1456 OFFICE MACHINES WIRER: 03/02/19 1542 DIS IN 03/03/19 [facility] [address] [place] [address]
--- NOTE | 2019-03-04 09:14 | EC ---
PATIENT:PRITESH KWAN DATE OF SERVICE: 03/02/19 SEX: M MEDICAL RECORD: [id number] DATE OF : 38 LOCATION:[facility] D230 AGE OF PATIENT: 79 ADMISSION DATE: 03/02/19 REFERRING PHYSICIAN: INTERPRETING PHYSICIAN: MÓNICA PEDERSON MD ECHOCARDIOGRAM REPORT ECHO CHARGES 4 ECHO COMPLETE Date: 03/03/19 CLINICAL DIAGNOSIS: CHF ECHOCARDIOGRAPHIC MEASUREMENTS (adult normal given) AC root (d.<3.7cm) 3.4 cm LV Septum d (<1.2 cm> 1.2 cm Valve Excursion 2.0 cm LV Septum (systole) 1.4 cm Left Atria (s.<4.0cm> 5.0 cm LVPW d(<1.2cm) 1.1 cm RV (d.<2.3cm) 2.4 cm LVPW (sytole) 1.6 cm LV diastole(<5.6CM) 6.4 cm MV E-F(>70mm/sec) cm LV systole 5.1 cm LVOT Diameter 1.8 cm MV exc.(>10mm) cm Est.ejection fraction (50-75%) % DOPPLER: LVIT cm/sec A 109 cm/sec E 86.0 cm/sec LA cm/sec RVSP 53.0 mmHg LVOT 57.0 cm/sec AOP1/2T m/s Asc. Ao 128 cm/sec RVOT 76.0 cm/sec RA cm/sec PA 97.0 cm/sec AV Gradient Peak 6.6 mmHg AV Mean 3.6 mmHg AV Area 1.6 cm MV Gradient Peak 5.9 mmHg MV Mean 2.0 mmHg MV Area cm COMMENTS: Welding Machine Operator Electro Gas: Hector OLSENOE Oven Dauber: 1 Dr. Pederson TAPE# PACS Pericardial Effusion Y DATE OF SERVICE: 03/03/2019 FINDINGS: 1. Left ventricular chamber size is moderately dilated. Left ventricular systolic function is markedly reduced at 15% to 20%. 2. Left atrium is enlarged at 5.0 cm. Right atrium and right ventricular chamber sizes are as well mildly dilated. 3. Valvular structures have normal structure and motion. 4. Doppler interrogation reveals moderate mitral regurgitation, moderate tricuspid regurgitation, no other valvular insufficiency or stenosis. Pulmonary ECHOCARDIOGRAM REPORT [id number] PRITESH KWAN systolic pressure is elevated, estimated at 53 mmHg. 5. Small pericardial effusion is present that is not hemodynamically significant. TRANSINT:[id number] Voice Confirmation ID: [id number] DOCUMENT ID: [id number] MÓNICA PEDERSON MD at 0914 CC: [id number] DICTATION DATE: 03/03/19 1224 SIDE STITCHING MACHINE OPERATOR: 03/03/192034 DIS IN 03/03/19 [place] [id number] [place] [id number]
--- NOTE | 2019-03-05 14:20 | NUR ---
Per CMS protcol, restraint report logged into data base.
--- NOTE | 2019-03-26 13:28 | DS ---
PATIENT:PRITESH MITCHELL :[birth year] MEDICAL RECORD: [id number] DISCHARGE SUMMARY ADMISSION DATE: 03/02/19 DISCHARGE DATE: 03/03/19 DIAGNOSES: 1. Congestive heart failure, chronic systolic dysfunction. 2. Shortness of breath and dyspnea on exertion. 3. Ischemic cardiomyopathy. 4. Coronary artery disease. 5. Previous percutaneous transluminal coronary angioplasty and stent. 6. Atrial fibrillation. 7. Hypertension. 8. Hyperlipidemia. 9. Insulin-dependent diabetes. HOSPITAL COURSE: Mr. Mitchell presents with increasing shortness of breath, congestive heart failure symptomatology despite medical management with inotropic therapy and diuretic therapy, continued to worsen. His family made him a DNR and comfort care measures only and he passed soon thereafter from intractable congestive heart failure. TRANSINT:[id number] Voice Confirmation ID: [id number] DOCUMENT ID: [id number] MÓNICA LORENZO MD at 1328 CC: [id number] DICTATION DATE: 03/23/19 1056 INTELLIGENCE CLERK: 03/24/19 0045 DIS IN 03/03/19 [place] [id number] [place] [address]
== END 2019-03-03 13:25 ==
LOC: OBSVTIME → D.ER 13:27 → OBSVTIME 14:52 → D.M2 14:52 → OBSVTIME 15:19 → D.ER 15:19 → D.M2 15:19 → D.ICU 16:14 → D.M2 18:03 → D.ICU 03-03 13:25 → D.M2 03-03 13:25 → D.ICU 03-03 13:25
PROVIDERS: Family Medicine; Internal Medicine Nephrology; ADMIT Internal Medicine Interventional Cardiology; ATTEND Internal Medicine Interventional Cardiology
PROC: 5A1935Z Respiratory Ventilation, Less than 24 Consecutive Hours (ICD-10-PCS; principal; 2019-03-03)
PROC: 0BH17EZ Insertion of Endotracheal Airway into Trachea, Via Natural or Artificial Opening (ICD-10-PCS; 2019-03-03)
DX: I11.0 Hypertensive heart disease with heart failure (principal); J18.9 Pneumonia, unspecified organism; I21.9 Acute myocardial infarction, unspecified; J96.21 Acute and chronic respiratory failure with hypoxia; J44.1 Chronic obstructive pulmonary disease with (acute) exacerbation; N17.9 Acute kidney failure, unspecified; I47.1 Supraventricular tachycardia; J44.0 Chronic obstructive pulmonary disease with (acute) lower respiratory infection; I50.23 Acute on chronic systolic (congestive) heart failure; I25.110 Atherosclerotic heart disease of native coronary artery with unstable angina pectoris; D64.9 Anemia, unspecified; E78.5 Hyperlipidemia, unspecified; I25.5 Ischemic cardiomyopathy; E11.9 Type 2 diabetes mellitus without complications; I48.0 Paroxysmal atrial fibrillation; I46.9 Cardiac arrest, cause unspecified